=== PATIENT | female | born 1985 ===

== ENCOUNTER → 2023-12-25 16:03 | Outpatient (REF) | payer OTHER, SELFPAY ==
[2023-12-25 17:01] LABS: % Basophils 1.1 %; % Eosinophils 0.8 %; % Immature Granulocytes 0.2 %; % Monocytes 6.6 %; % Neutrophils 39.3 %; Absolute Basophils 0.1 10^3/uL; Absolute Eosinophils 0.1 10^3/uL; Absolute Lymphocytes 3.2 10^3/uL; Absolute Monocytes 0.4 10^3/uL; Absolute Neutrophils 2.4 10^3/uL; Hematocrit 26.8 %; Hemoglobin 7.5 g/dL; Mean Corpuscular Hgb 17.1 pg; Nucleated Red Blood Cells % 0 %; Platelet Count 372 10^3/uL; Red Blood Cell Count 4.39 10^6/uL; Red Cell Dist. Width 21.5 %; White Blood Cell Count 6.2 10^3/uL
[2023-12-25 17:56] LABS: Hypochromasia 1+; Macrocytosis 1+; Microcytosis 1+; Normal RBC Morphology No; Ovalocytes Slight
== END ==
LOC: REG 16:03
PROVIDERS: ATTENDING PHYSICIAN Physician Assistant
DX: Z98.84 Bariatric surgery status (principal)
CPT/HCPCS: 36415; 85025

== ENCOUNTER 2023-12-26 15:37 | Emergency (ER) | payer OTHER, SELFPAY ==
[2023-12-26 15:38] VITALS: BMI 37.1
[2023-12-26 15:42] VITALS: BP 95/77
[2023-12-26 16:17] LABS: % Basophils 1.1 %; % Eosinophils 0.7 %; % Immature Granulocytes 0.2 %; % Lymphocytes 54.8 %; % Monocytes 6.1 %; % Neutrophils 37.1 %; Absolute Basophils 0.1 10^3/uL; Absolute Lymphocytes 3.1 10^3/uL; Absolute Monocytes 0.3 10^3/uL; Absolute Neutrophils 2.1 10^3/uL; Hematocrit 25.8 %; Hemoglobin 7.3 g/dL; Mean Corp Hgb Conc. 28.3 g/dL; Mean Corpuscular Hgb 16.9 pg; Mean Corpuscular Volume 59.6 fL; Nucleated Red Blood Cells % 0 %; Platelet Count 347 10^3/uL; Red Blood Cell Count 4.33 10^6/uL; Red Cell Dist. Width 20.7 %; White Blood Cell Count 5.6 10^3/uL
--- NOTE | 2023-12-26 16:26 | ED.GENMED ---
History of Present Illness
General
Chief Complaint: Abnormal Lab Value
Time Seen by Provider: 12/26/23 15:39
Travel History
Have you had any contact with someone who has COVID-19?: No
Do you have any symptoms of coronavirus? Fever > 100 degrees, chills, cough, shortness of breath, sore throat, loss of taste or smell, muscle aches, or headache?: No
History of Present Illness
History of Present Illness:
38-year-old female presents emergency department from postconcussion facility due to low hemoglobin. Patient has a history of iron deficiency anemia previously requiring blood transfusions and iron infusions. Had previously followed with a
reimbursement coordinator locally in [place] before being incarcerated last year. She notes that she has felt fatigued and lightheaded the past several days. She is on oral iron supplementation. 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
bypass. She denies any abdominal pain, bloody stools, or easy bruising. Potentially will be discharged from the correctional facility tomorrow
Review of Systems
Review of Systems
Allergies reviewed?: Yes
All Other Systems: ROS reviewed and negative except as documented in HPI and ROS
Phy Exam
Physical Exam
Physical Exam:
GEN: Well appearing, NAD, WDWN
HEENT: Oral mucosa moist, no scleral icterus
Cardiac: Regular rate
Lung: No respiratory distress, no tachypnea
MSK: No gross deformity or injuries
Skin: Generally pale, no jaundice
Neuro: AO x3, moves all extremities freely
Psych: Calm, cooperative
Course
Orders/Labs/Results
Orders:
Orders
12/26/23 15:55
Electrocardiogram (*1) Urgent
Reason for Study: Fatigue / Weakness
EKG- Treatment ONCE
12/26/23 16:05
Type+Screen Urgent
Complete Blood Count/With Diff Urgent
Comprehensive Metabolic Panel Urgent
12/26/23 17:58
Blood Bank Products [* Blood Bank Products] Urgent
Blood Bank Products: *Packed RBC Leuko(PRBC's)
Quantity: 1
Transfuse Today: Yes
Reason: Anemia
Abnormal Lab Results
12/26/23
16:05
Sodium 134 L mmol/L
(135-145)
Crossmatch IS Only See Detail
12/26/23 16:05
12/26/23 16:05
Vital Signs
Initial and Last Documented VS:
Initial Vital Signs
Temp Pulse Resp BP Pulse Ox
98.0 F 66 16 95/77 100
12/26/23 15:42 12/26/23 15:42 12/26/23 15:42 12/26/23 15:42 12/26/23 15:42
Last Documented Vital Signs
Temp Pulse Resp BP Pulse Ox
97.9 F 73 16 102/71 100
12/26/23 20:46 12/26/23 20:46 12/26/23 20:46 12/26/23 20:46 12/26/23 20:46
MDM/Problems Addressed
MDM/Problems Addressed:
Repeat hemoglobin today of 7.3. Stool Hemoccult will be invalid on the basis of her oral iron supplementation. Likely iron deficiency due to poor gastric absorption in the setting of prior bariatric surgery. Blood transfusion given, tolerated
well. Recommend outpatient follow-up locally in [place] when she is released to incarceration, if not and this may need to be set up for iron infusions at the correctional facility
*Critical Care Note
Total Time (30-74mins, 75-104mins- exclusive of procedures): Not Applicable
ED Attending Note
-
Portions of this chart may have been created with voice recognition software.� Occasional wrong word or��sound alike� substitutions may have occurred due to the inherent limitations of voice recognition software.
Discharge Plan
Departure
Patient Disposition: Home (Routine Discharge)
Date of Disposition: 12/26/23
Time of Disposition: 21:02
Patient with high blood pressure during this ER visit?: No
Discharge Problem:
Iron deficiency anemia
Instructions: Anemia Caused by Low Iron, Adult (DC)
Referrals:
Torrey Forte, DO [Active] -
[facility] [[facility] -
Activity Restrictions/Additional Instructions:
Follow-up with your reimbursement coordinator in [place] if you are released from correctional facility, if you remain car serrated you will need follow-up with hematology oncology service, information provided on discharge summary
Interventions
Interventions:
*Risk Screen - Suicide Last Done: 12/26/23 15:42
*General Assessment Last Done: 12/26/23 15:42
*Neglect/Abuse Screening Last Done: 12/26/23 15:42
ED- Fall Risk Assessment Last Done: 12/26/23 18:05
*ED COVID-19 Vaccine History Last Done: 12/26/23 15:42
Discharge Date and Time
Print Language: [id number]
[2023-12-26 16:34] LABS: ALT (SGPT) 15 U/L (0-35); AST (SGOT) 15 U/L (14-36); Albumin 4.3 g/dl (3.5-5.0); Alkaline Phosphatase 41 U/L (38-126); Blood Urea Nitrogen 10 mg/dl (7-17); Calcium 9.2 mg/dl (8.4-10.2); Carbon Dioxide 25 mmol/L (22-30); Chloride 106 mmol/L (98-107); Estimated Creatinine Clearance > 125 ml/min; Glucose 86 mg/dl (70-99); Potassium 4.2 mmol/L (3.5-5.1); Sodium 134 mmol/L (135-145); Total Bilirubin 0.5 mg/dl (0.2-1.3); Total Protein 6.8 g/dl (6.3-8.2); eGFR > 60.00
[2023-12-26 16:47] LABS: Hypochromasia 1+; Macrocytosis 1+; Normal RBC Morphology No
[2023-12-26 16:48] LABS: Microcytosis 1+; Ovalocytes Slight
[2023-12-26 16:49] LABS: Stomatocytes Slight
[2023-12-26 16:50] LABS: Other Cells 100
[2023-12-26 18:27] VITALS: BP 85/55
[2023-12-26 18:37] VITALS: BP 102/62
[2023-12-26 18:44] VITALS: BP 102/69
[2023-12-26 19:59] VITALS: BP 113/69
[2023-12-26 20:46] VITALS: BP 102/71
== END 2023-12-26 21:09 | disposition home or self-care (01) ==
LOC: EMR 15:37
PROVIDERS: Physician Assistant; EMERGENCY PHYSICIAN Emergency Medicine
DX: D50.9 Iron deficiency anemia, unspecified (principal)
CPT/HCPCS: 99285; 36430; 80053; 85025; 86850; 86900; 86901; 86920; 93005; P9016